=== PATIENT | male | born 1995 | race Caucasian/White ===

== ENCOUNTER 2016-12-24 12:46 | Emergency (ER) | payer OTHER ==
[2016-12-24 12:53] VITALS: BP 131/84; PULSE 79; RESP 18; TEMP 98.5; O2SAT 97
[2016-12-24] MEDS ORDERED: Bacitracin 500 Units/gm Oint Foilpak UD TOP STA (13:44)
[2016-12-24] MEDS ORDERED: Tetanus/Diphtheria Toxoids 0.5 ml Syringe IM ONE ×2 (13:44→14:01)
[2016-12-24] MEDS ORDERED: Bacitracin 500 Units/gm Oint Foilpak UD ONE (14:00)
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
--- NOTE | 2016-12-29 15:06 | CARD ---
APPROVED REPORT EKG Measurement Heart [id number] <Conclusion> Normal sinus rhythm Normal ECG
== END 2016-12-24 14:52 | disposition home or self-care (01) ==
LOC: C.ER 12:46
DX: S62.512A Displaced fracture of proximal phalanx of left thumb, initial encounter for closed fracture (principal); V49.49XA Driver injured in collision with other motor vehicles in traffic accident, initial encounter; Y92.410 Unspecified street and highway as the place of occurrence of the external cause; Z23 Encounter for immunization